=== PATIENT | female | born 1995 | race Caucasian/White ===

== ENCOUNTER 2023-01-06 18:28 | Emergency (ER) | payer OTHER, SELFPAY ==
[2023-01-06 18:34] VITALS: BP 103/101; PULSE 106; RESP 18; TEMP 36.1; O2SAT 99; BMI 42.6
--- NOTE | 2023-01-06 18:38 | ED_ITS ---
HPI - SOB/Dyspnea General Time Seen by Provider: 18:38 Date Seen: 01/06/23 Chief Complaint: Shortness of Breath/Dyspnea Stated Complaint: Trouble breathing Time Seen by Provider: 01/06/23 18:29 Source: patient and RN notes reviewed Mode of arrival: ambulatory Limitations: no limitations History of Present Illness HPI Narrative: Patient is a 27-year-old female coming in with cough, burning chest pain with coughing and breathing. She started getting sick on Wednesday on arrival back from [place]. She was in [place] for the [employer] parade. She started mancuso ving a little bit of a cough there but it has significantly worsened in the last couple days. Today she started having some burning chest pain with coughing breathing. No fevers and she has checked her temperature. Her throat maybe feels a little sore from coughing so much. 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 Denies smoking. Related Data Previous Rx's Medication Instructions Recorded doxycycline monohydrate 100 mg 100 mg PO BID #20 caps 01/06/23 capsule prednisone 20 mg tablet 20 mg PO BID #10 tabs 01/06/23 Allergies Allergy/AdvReac Type Severity Reaction Status Date / Time acetaminophen Allergy Unknown Verified 01/06/23 18:36 hydrocodone Allergy Unknown Verified 01/06/23 18:36 Review of Systems Status of ROS: Reports: 6 or more systems reviewed and unremarkable except as noted in History and below Exam Const: Vital Signs, click to edit/add: Vital Signs - 24 hr 01/06/23 18:34 01/06/23 18:51 Temperature 97.0 F L Pulse Rate [Pulse Oximeter] 106 H Respiratory Rate 18 Blood Pressure [Ri ght Forearm] 103/101 H 143/100 H Pulse Oximetry 99 Oxygen Delivery Me thod Room Air Documenting provider has reviewed patient's vital signs: yes Common normals: no apparent distress, oriented x3, no limitations, healthy appearing and alert General appearance: cooperative, comfortable, well kempt and well developed Other: Has a harsh sounding cough that is repetitive during the interaction. Sometimes it interrupts her speech but overall she is able to speak in complete sentences without any voice hoarseness. No stridor. HENMT: Common normals: normocephalic, head/scalp atraumatic, hearing grossly normal bilaterally, external ears normal, EAC's normal, TM's normal bilaterally, external nose normal, nasal mucous membranes and turbinates normal, moist oral mucous membranes, oropharynx normal, dentition normal and gingiva normal Head and scalp: normocephalic and atraumatic Nose: external nose normal and nasal mucous membranes and turbinates normal External ear: external ears normal External auditory canal: EAC's normal Tympanic membrane: TM's normal bilaterally Eye: Common normals: PERRL, EOMs intact bilaterally, conjunctivae normal and no scleral icterus Conjunctiva: conjunctiva(e) normal Pupil: PERRL Neck & C-Spine: Common normals: full ROM, no lymphadenopathy and supple Resp: Common normals: normal respiratory effort, no retractions and no use of accessory muscles Other: Inspiration is normal but she has diminished expiratory lung sounds and prolonged expiratory phase. Do not hear any wheezing per se. There is maybe a rubber or rhonchi left lower border posteriorly on auscultation. Cardio: Common normals: regular rate, regular rhythm, S1 normal heart sound, S2 normal heart sound, no gallops, no clicks and no murmurs Rate: regular rate Rhythm: regular rhythm Heart sounds: S1 normal and S2 normal Neuro: Common normals: oriented x3 Sensorium/orientation: alert Psych: Appearance: well kempt Course Course Hospital Course: She certainly has a respiratory infection, could be atypical pneumonia verses lobar pneumonia verses upper respiratory infection from a virus. With her history of asthma and the changes with expiration, will see if she responds to a DuoNeb. We are repeating her COVID which she states was negative at home, will also do influenza and RSV. She will a portable chest x-ray and will assess her response to the DuoNeb. Reevaluation(s) Reevaluation #1: Reviewed with patient her chest x-ray is showing left-sided pneumonia. She did not feel the DuoNeb really helped, is still coughing. We will contact her if any of the triple swab comes back positive, is not going to change our course of action as far as treating pneumonia. Time: 19:29 Vital Signs Vital signs: Initial Vital Signs Temperature 97.0 F L 01/06/23 18:34 Temperature Source Temporal Artery Scan 01/06/23 18:34 Pulse Rate 106 H 01/06/23 18:34 Pulse Rhythm 03/22/23 18:34 Pulse Strength 3+ Normal 01/06/23 18:34 Respiratory Rate 18 01/06/23 18:34 Blood Pressure 103/101 H 01/06/23 18:34 Blood Pressure Mean 101 01/06/23 18:34 Blood Pressure Position Sitting 01/06/23 18:34 Pulse Oximetry 99 01/06/23 18:34 Oxygen Delivery Method 01/06/23 18:34 Vital Signs Temperature 97.0 F L 01/06/23 18:34 Pulse Rate 106 H 01/06/23 18:34 Respiratory Rate 18 01/06/23 18:34 Blood Pressure 103/101 H 01/06/23 18:34 Pulse Oximetry 99 01/06/23 18:34 Oxygen Delivery Method 01/06/23 18:34 Temperature 97.0 F L 01/06/23 18:34 Pulse Rate 106 H 01/06/23 18:34 Respiratory Rate 18 01/06/23 18:34 Blood Pressure 143/100 H 01/06/23 18:51 Pulse Oximetry 99 01/06/23 18:34 Oxygen Delivery Method 01/06/23 18:34 MDM - SOB/Dyspnea Lab Data Attestation: I reviewed the patient's lab results. Labs: Lab Results 01/06/23 Range/Units 18:40 SARS-CoV-2 (PCR) Negative SARS-CoV-2 (Negative) Influenza Type A (PCR) Negative PCR FLU A (Negative) Influenza Type B (PCR) Negative PCR FLU B (Negative) RSV (PCR) Negative PCR RSV (Negative) Imaging Data Chest x-ray: Attestation: I have reviewed the pertinent imaging results. My impression: Appreciate an infiltrate on the left lung field. Radiologist's impression: Patient: JAYDEN CHOI Facility:?[facility] Patient ID:?[id number] Site Patient ID:?[id number]. Site :?[id number] Study:?XRay Chest PCXR-01/06/2023 7:00:56 PM Ordering Physician:Alvarez Kendall Final Report: HISTORY: Cough. COMPARISON: None available FINDINGS: A portable erect AP view of the chest was obtained at 1856 hours. There is mild patchy infiltrate in the left upper lobe consistent with mild left upper lobe pneumonia. The rest of the chest is clear. The heart is normal in size. The mediastinum is normal in appearance. The osseous structures are normal in appearance for the patient`s age. IMPRESSION: New mild left upper lobe pneumonia. Dictated by Ramy Velazco MD @ 01/06/2023 7:15:40 PM (Electronic Signature) Discharge Plan Discharge Clinical Impression: Community acquired pneumonia Patient Disposition: Home, Self-Care Condition: Stable Instructions: Community Acquired Pneumonia (ED) Additional Instructions: Start oral antibiotic and prednisone tonight, take as prescribed. Recommend taking prednisone with food to protect her stomach. Can use [id number] medications for control of cough. If you are not improving over the next week to 10 days, feel you are worsening at any point, do need to seek re-evaluation. Please review handouts. Activity Level: Activity as Tolerated Discharge Diet: Regular Prescriptions: New doxycycline monohydrate 100 mg capsule 100 mg PO BID Qty: 20 0RF prednisone 20 mg tablet 20 mg PO BID Qty: 10 0RF Follow Up/Referrals: Provider,Not a Local [Referring] - Stand Alone Forms: [employer] Info Instructions
--- NOTE | 2023-01-06 18:43 | CRLHL7_ITS ---
For Patients: As a result of the Century Cures Act, medical imaging exams and procedure reports are released immediately into your electronic medical record. You may view this report before your referring provider. If you have questions, please contact your health care provider. HISTORY: Cough. COMPARISON: None available FINDINGS: A portable erect AP view of the chest was obtained at 1856 hours. There is mild patchy infiltrate in the left upper lobe consistent with mild left upper lobe pneumonia. The rest of the chest is clear. The heart is normal in size. The mediastinum is normal in appearance. The osseous structures are normal in appearance for the patient`s age. IMPRESSION: New mild left upper lobe pneumonia. Dictated by Ramy Velazco MD @ 01/06/2023 7:15:40 PM (Electronically Signed)
[2023-01-06] MEDS: IPRAT-ALBUT 0.5-2.5 MG/3 ML NEB 1 NEB IH (18:49)
[2023-01-06 18:51] VITALS: BP 143/100
[2023-01-06 19:22] LABS: PCR FLU A Negative PCR FLU A (Negative); PCR FLU B Negative PCR FLU B (Negative); PCR RSV Negative PCR RSV (Negative)
[2023-01-06 19:43] LABS: SARS PCR* Negative SARS-CoV-2 (Negative)
== END 2023-01-06 19:42 | disposition home or self-care (01) ==
PROVIDERS: Emergency Provider Family Medicine; PCP Family Medicine
DX: J18.9 Pneumonia, unspecified organism (principal)
CPT/HCPCS: 71045; 87502; 87634; 87635; 94640; 99284

== ENCOUNTER 2023-01-07 18:31 | Emergency (ER) | payer OTHER, SELFPAY ==
[2023-01-07 18:48] VITALS: BP 128/84; PULSE 105; RESP 22; TEMP 36.4; O2SAT 100; BMI 43.9
--- NOTE | 2023-01-07 19:05 | ED.GENADULT ---
HPI - General Adult General Chief complaint: Shortness of Breath/Dyspnea Stated complaint: Difficulty breathing Time Seen by Provider: 01/07/23 18:53 History of Present Illness HPI narrative: This 27-year-old female was seen yesterday in the emergency department and diagnosed with a pneumonia. She is on doxycycline and prednisone. She returns today because of persistent coughing with associated chest discomfort and feeling some what short of breath. She does arrive with normal vital signs except for a heart rate that is slightly elevated. She is getting sufficient oximetry and not using accessory muscles for breathing. She does not report any fevers. Related Data Previous Rx's Medication Instructions Recorded doxycycline monohydrate 100 mg 100 mg PO BID #20 caps 01/06/23 capsule prednisone 20 mg tablet 20 mg PO BID #10 tabs 01/06/23 acetaminophen 300 mg-codeine 30 mg 1 tab PO Q6H PRN pain #20 tabs 01/07/23 tablet Allergies Allergy/AdvReac Type Severity Reaction Status Date / Time hydrocodone Allergy Unknown Verified 01/06/23 18:36 Review of Systems Status of ROS: Reports: 10 or more systems reviewed and unremarkable except as noted in History and below Narrative: Constitutional: No fevers, no weight gain or loss. Eyes: No discharge. No vision changes. HENT: No congestion, no sore throat, no ear pain. Cardiovascular: No chest pain, no palpitations. Respiratory: Frequent coughing with associated shortness of breath and chest discomfort. Gastrointestinal: No abdominal pain, no vomiting, no diarrhea. Genitourinary: No dysuria, no hematuria. Musculoskeletal: Normal range of motion. Skin: No rashes, no pruritis. Neurological: No dizziness, weakness, sensory change, speech change. Endo/Heme/Allergies: No bruising or bleeding. No polydipsia. Pysch: no suicidality, no anxiety, no insomnia. All other systems reviewed and are negative. Exam Narrative: Exam Narrative: Constitutional: Well-developed, well-nourished, no acute distress. HEENT: Normocephalic, atraumatic. Neck: Normal range of motion. Nontender. Supple. Heart: Regular. No murmurs. Normal rate. Intact distal pulses. Lungs: Clear to auscultation. Chest discomfort with coughing. No wheezes, rhonchi, or rales. Abdomen: Normal bowel sounds. Nontender. No rebound tenderness. Genitalia: Deferred. Back: No midline tenderness. Normal range of motion. Extremities: Normal range of motion. No injury. Skin: Intact. No rash. Warm. No erythema or pallor. Neurologic: No altered sensation. No weakness. Alert and oriented. Psychiatric: No suicidality. No anxiety or depression. No insomnia. Nursing notes and vitals signs are reviewed. Const: Vital Signs, click to edit/add: Vital Signs - 24 hr 01/07/23 18:48 Temperature 97.5 F L Pulse Rate [Right Pulse Oximeter] 105 H Respiratory Rate 22 Blood Pressure [Ri ght Upper Arm] 128/84 Pulse Oximetry 100 Oxygen Delivery Me thod Room Air Course Vital Signs Vital signs: Initial Vital Signs Temperature 97.5 F L 01/07/23 18:48 Temperature Source Temporal Artery Scan 01/07/23 18:48 Pulse Rate 105 H 01/07/23 18:48 Respiratory Rate 22 01/07/23 18:48 Blood Pressure 128/84 01/07/23 18:48 Blood Pressure Mean 98 01/07/23 18:48 Blood Pressure Position Sitting 01/07/23 18:48 Pulse Oximetry 100 01/07/23 18:48 Oxygen Delivery Method Room Air 01/07/23 18:48 Vital Signs Temperature 97.5 F L 01/07/23 18:48 Pulse Rate 105 H 01/07/23 18:48 Respiratory Rate 22 01/07/23 18:48 Blood Pressure 128/84 01/07/23 18:48 Pulse Oximetry 100 01/07/23 18:48 Oxygen Delivery Method Room Air 01/07/23 18:48 Temperature 97.5 F L 01/07/23 18:48 Pulse Rate 105 H 01/07/23 18:48 Respiratory Rate 22 01/07/23 18:48 Blood Pressure 128/84 01/07/23 18:48 Pulse Oximetry 100 01/07/23 18:48 Oxygen Delivery Method Room Air 01/07/23 18:48 Medical Decision Making MDM Narrative Medical decision making narrative: This patient is being treated for pneumonia with doxycycline and prednisone. She has been taking DayQuil and NyQuil for additional relief. She does report chest pain with coughing. She arrives with reassuring vital signs and is not using any accessory muscles for breathing. Her lungs sound clear bilaterally. She is not showing any sign of respiratory distress or need for intervention for her breathing. She appears to be on good medicine for her diagnosis and may benefit from additional treatment of her cough. I did prescribe Tylenol 3 for both pain relief and cough suppressant benefits. I encouraged her to use a cough medicine with dextromethorphan for additional relief as needed. I describe signs and symptoms that would indicate a need for return and re-evaluation. Discharge Plan Discharge Clinical Impression: Pneumonia Patient Disposition: Home, Self-Care Condition: Unchanged Additional Instructions: Take medication as prescribed. Use [id number] cough medicine with dextromethorphan also as needed and directed. Follow up with MD or return if worsening. Prescriptions: New acetaminophen-codeine 300-30 mg tablet 1 tab PO Q6H PRN (Reason: pain) Qty: 20 0RF No Action doxycycline monohydrate 100 mg capsule 100 mg PO BID Qty: 20 0RF prednisone 20 mg tablet 20 mg PO BID Qty: 10 0RF Follow Up/Referrals: Aurelia Schmidt MD [Primary Care Provider] - Stand Alone Forms: [employer] Info Instructions
== END 2023-01-07 19:22 | disposition home or self-care (01) ==
PROVIDERS: Emergency Provider Emergency Medicine Emergency Medical Services; PCP Family Medicine
DX: J18.9 Pneumonia, unspecified organism (principal)
CPT/HCPCS: 99283; 99284

== ENCOUNTER 2023-07-14 10:37 | Emergency (ER) | payer OTHER, SELFPAY ==
[2023-07-14 10:47] VITALS: BP 119/77; PULSE 98; RESP 16; TEMP 36.4; O2SAT 98; BMI 42.3
--- NOTE | 2023-07-14 10:50 | CRLHL7_ITS ---
For Patients: As a result of the Cures Act, medical imaging exams and procedure reports are released immediately into your electronic medical record. You may view this report before your referring provider. If you have questions, please contact your health care provider. Indication: Pain Technique: Three views right thumb Comparison: None Findings: Bones: Alignment is normal. No fractures or bone lesions. Joint spaces: Unremarkable. Soft tissues: Unremarkable. Impression: No acute or significant findings. Dictated by Jeremías Maya MD @ 07/14/2023 11:17:59 AM (Electronically Signed)
--- NOTE | 2023-07-14 11:53 | ED_ITS ---
HPI - Extremity Injury (Upper) General Chief Complaint: Extremity Pain/Injury, Upper Stated Complaint: Thumb injury Time Seen by Provider: 07/14/23 11:07 History of Present Illness HPI narrative: This 28-year-old female comes in with an injury to her right thumb that occurred at work this prior to arrival. 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 She got a contusion to her right thumb at the MP joint. Related Data Home Medications Medication Instructions Recorded Confirmed duloxetine 30 mg capsule,delayed 30 mg PO DAILY 07/14/23 07/14/23 release Previous Rx's Medication Instructions Recorded ketorolac 10 mg tablet 10 mg PO Q8H 5 days #15 tabs 07/14/23 Allergies Allergy/AdvReac Type Severity Reaction Status Date / Time hydrocodone Allergy Unknown Verified 01/06/23 18:36 bees Allergy Severe Anaphylaxis Uncoded 07/14/23 10:47 Review of Systems Status of ROS: Reports: 10 or more systems reviewed and unremarkable except as noted in History and below Narrative: Constitutional: No fevers, no weight gain or loss. Eyes: No discharge. No vision changes. HENT: No congestion, no sore throat, no ear pain. Cardiovascular: No chest pain, no palpitations. Respiratory: No shortness of breath, no wheezes, no cough. Gastrointestinal: No abdominal pain, no vomiting, no diarrhea. Genitourinary: No dysuria, no hematuria. Musculoskeletal: Right thumb injury as described above. Skin: No rashes, no pruritis. Neurological: No dizziness, weakness, sensory change, speech change. Endo/Heme/Allergies: No bruising or bleeding. No polydipsia. Pysch: no suicidality, no anxiety, no insomnia. All other systems reviewed and are negative. PFSH PFSH Social History Smoking Status: Never smoker How often do you have a drink containing alcohol: never AUDIT-C Alcohol total score: 0 Non-prescribed substance use: denies use Exam Narrative: Exam Narrative: Constitutional: Well-developed, well-nourished, no acute distress. HEENT: Normocephalic, atraumatic. Neck: Normal range of motion. Nontender. Supple. Heart: Regular. No murmurs. Normal rate. Intact distal pulses. Lungs: Clear to auscultation. No chest discomfort. No wheezes, rhonchi, or rales. Abdomen: Normal bowel sounds. Nontender. No rebound tenderness. Genitalia: Deferred. Back: No midline tenderness. Normal range of motion. Extremities: Diffuse tenderness at the base of the right thumb. No significant swelling and no sign of bruising. There is no skin injury. Ligament exam of the MP joint is intact. Skin: Intact. No rash. Warm. No erythema or pallor. Neurologic: No altered sensation. No weakness. Alert and oriented. Psychiatric: No suicidality. No anxiety or depression. No insomnia. Nursing notes and vitals signs are reviewed. Const: Vital Signs, click to edit/add: Vital Signs - 24 hr 07/14/23 10:47 Temperature 97.6 F Pulse Rate [Right Pulse Oximeter] 98 Respiratory Rate 16 Blood Pressure [Ri ght Upper Arm] 119/77 Pulse Oximetry 98 Oxygen Delivery Me thod Room Air Course Vital Signs Vital signs: Initial Vital Signs Temperature 97.6 F 07/14/23 10:47 Temperature Source Temporal Artery Scan 07/14/23 10:47 Pulse Rate 98 07/14/23 10:47 Pulse Rhythm Regular 07/14/23 10:47 Respiratory Rate 16 07/14/23 10:47 Blood Pressure 119/77 07/14/23 10:47 Blood Pressure Mean 91 07/14/23 10:47 Blood Pressure Position Sitting 07/14/23 10:47 Pulse Oximetry 98 07/14/23 10:47 Oxygen Delivery Method Room Air 07/14/23 10:47 Vital Signs Temperature 97.6 F 07/14/23 10:47 Pulse Rate 98 07/14/23 10:47 Respiratory Rate 16 07/14/23 10:47 Blood Pressure 119/77 07/14/23 10:47 Pulse Oximetry 98 07/14/23 10:47 Oxygen Delivery Method Room Air 07/14/23 10:47 Temperature 97.6 F 07/14/23 10:47 Pulse Rate 98 07/14/23 10:47 Respiratory Rate 16 07/14/23 10:47 Blood Pressure 119/77 07/14/23 10:47 Pulse Oximetry 98 07/14/23 10:47 Oxygen Delivery Method Room Air 07/14/23 10:47 MDM - Extremity Injury (Upper) MDM Narrative Medical decision making narrative: This patient has an injury to her right thumb that occurred at work. X-ray images show no sign of fracture or other abnormality. The patient did receive a thumb spica splint that can be worn as needed. A prescription for Toradol as also provided. I did recommend that she begin to use her thumb as tolerated. A return to work note is also provided. Discharge Plan Discharge Clinical Impression: Contusion of right thumb Patient Disposition: Home, Self-Care Condition: Stable Additional Instructions: Wear splint as needed. Increase activity as tolerated. Use Toradol as needed and directed for pain relief. Follow up with MD otherwise as needed. Prescriptions: New ketorolac 10 mg tablet 10 mg PO Q8H 5 Days Qty: 15 0RF No Action duloxetine 30 mg capsule,delayed release(DR/EC) 30 mg PO DAILY Follow Up/Referrals: Aurelia Schmidt MD [Primary Care Provider] - Stand Alone Forms: [employer] Info Instructions
== END 2023-07-14 12:07 | disposition home or self-care (01) ==
LOC: ED 12:04
PROVIDERS: Emergency Provider Emergency Medicine Emergency Medical Services; PCP Family Medicine
DX: S60.011A Contusion of right thumb without damage to nail, initial encounter (principal); W22.8XXA Striking against or struck by other objects, initial encounter; Y99.0 Civilian activity done for income or pay
CPT/HCPCS: 29130; 73140; 99283; 99284